=== PATIENT | female | born 1975 | race Two or more races ===

== ENCOUNTER → 2017-11-17 | Outpatient (CLI) | payer MEDICAID | LOC: BRMIMAGING 09:26 | PROVIDERS: ATTEND Internal Medicine | DX: M32.9 Systemic lupus erythematosus, unspecified (principal); R07.9 Chest pain, unspecified; M25.561 Pain in right knee; M25.562 Pain in left knee | CPT/HCPCS: 71046-PO; 73130-PO; 73562-PO ==